=== PATIENT | female | born 2000 | race Caucasian/White ===

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

== ENCOUNTER 2022-02-09 15:40 | Observation (INO) ==
[2022-02-09 18:25] LABS: Bilirubin,Urine Negative (Negative); Blood,Urine Negative (Negative); Clarity,Urine Turbid (Clear); Color,Urine Light-Yellow (Yellow); Glucose,Urine (UA) Normal (Normal); Ketones,Urine Negative (Negative); Leukocyte Esterase,Urine Large (Negative); Mucus,Urine Few per lpf (None-Few); Nitrite,Urine Negative (Negative); Protein,Urine Trace mg/dL (Neg-Trace); RBC,Urine 15-30 per hpf (0-3); Specific Gravity,Urine 1.019 (1.010-1.025); Squamous Epithelial Cell,Urine Many per hpf (None-Few); Urobilinogen,Urine Normal (Normal); WBC,Urine TNTC per hpf (0-3)
[2022-02-09 18:26] LABS: Basophils % 0.2 %; Eosinophils % 0.4 %; Hematocrit 28.6 % (35.3-44.9); Hemoglobin 9.7 g/dL (11.5-15.4); Immature Granulocytes % 1.1 % (0-4); Lymphocytes % 18.4 %; Mean Corpuscular HGB Conc 33.9 g/dL (31.6-35.5); Mean Corpuscular Hemoglobin 30.7 pg (28.0-33.3); Mean Corpuscular Volume 90.5 fL (83.0-100.0); Mean Platelet Volume 11.4 fL (9.4-12.4); Neutrophils # 7.6 K/mcL (1.6-8.9); Platelet Count 185 K/mcL (140-400); Red Blood Count 3.16 M/mcL (3.82-4.97); Segmented Neutrophils % 70.9 %; White Blood Count 10.7 K/mcL (4.3-11.1)
[2022-02-09 18:54] LABS: BUN/Creatinine Ratio 17 (6-26); Blood Urea Nitrogen 8 mg/dL (6-20); Calcium 8.3 mg/dL (8.6-10.3); Carbon Dioxide 24 mEq/L (23-29); Chloride 105 mEq/L (98-107); Glucose 95 mg/dL (70-105); Osmolality,Calculated 278 (280-300); Potassium 3.6 mEq/L (3.5-5.1); Sodium 135 mEq/L (136-145)
[2022-02-09] MEDS ORDERED: Morphine Sulfate 2 MG/ML SYRINGE IVP ONE (19:34)
[2022-02-09] MEDS ORDERED: Morphine Sulfate 2 MG/ML SYRINGE IVP PRN (23:56)
[2022-02-10] MEDS ORDERED: *HR* OxyCODONE Immed Rel 5 MG TABLET PO PRN (02:52)
[2022-02-10] MEDS ORDERED: Ondansetron 4 MG/2 ML VIAL IVP PRN (02:52)
[2022-02-10] MEDS ORDERED: Naloxone 0.4 MG/ML INJ IVP PRN (02:52)
[2022-02-10] MEDS: Acetaminophen 325 MG TABLET PO PRN ×2 (03:19→12:07)
[2022-02-10] MEDS: Ringers Solution, Lactated 1,000 ML IVC SCH ×2 (03:20→12:09)
[2022-02-10 20:46] VITALS: BP 93/54; PULSE 81; TEMP 98.4; O2SAT 98
[2022-02-10] MEDS ORDERED: Nitrofurantoin (BID) 100 MG CAPSULE PO SCH (21:00)
== END 2022-02-10 21:29 | disposition home or self-care (01) ==
LOC: 1NENUOBS 15:40 → EMEROOARM 15:40 → 1NENUOBS 02-10 01:54
PROVIDERS: ADMIT Advanced Practice Midwife; ATTEND Advanced Practice Midwife